=== PATIENT | male | born 2005 | race Caucasian/White ===

== ENCOUNTER 2024-03-14 18:21 | Observation (INO) | payer OTHER ==
--- NOTE | 2024-03-14 18:33 | ERPHSYRPT ---
- History of Present Illness Time Seen by Provider: 03/14/24 18:28 Exam Limitations: no limitations Physician History: Patient is a 18-year-old male presents to our ED for evaluation of shortness of breath and muscle cramping. Patient states he was at work. Patient works outdoors. Patient reports that he has been sweating profusely outside while working. Patient later developed leg cramping and then shortness of breath. Patient denies active pain at this time. No history of asthma. Patient is a smoker. Patient denies fever. No trauma. Patient otherwise feels well. He voices no other complaints or concerns at this time. Portions of this note were created with voice recognition technology. There may be grammatical, spelling, punctuation or sound alike errors Timing/Duration: today Activities at Onset: none Severity of Dyspnea-Max: moderate Severity of Dyspnea-Current: mild Possible Cause: unknown cause Modifying Factors: Improves With: activity Allergies/Adverse Reactions: bee venom protein (honey bee) Allergy (Verified 03/14/24 22:40) Home Medications: No Reportable Medications [No Reported Medications] 03/14/24 [History] - Review of Systems Constitutional: No Symptoms, No Fever, No Chills Eyes: No Symptoms Ears, Nose, & Throat: No Symptoms Respiratory: No Symptoms, No Cough, No Dyspnea Cardiac: No Symptoms, No Chest Pain, No Edema, No Syncope Abdominal/Gastrointestinal: No Symptoms, No Abdominal Pain, No Nausea, No Vomiting, No Diarrhea Genitourinary Symptoms: No Symptoms, No Dysuria Musculoskeletal: No Symptoms, No Back Pain, No Neck Pain Skin: No Symptoms, No Rash Neurological: No Symptoms, No Dizziness, No Focal Weakness, No Sensory Changes Psychological: No Symptoms Endocrine: No Symptoms Hematologic/Lymphatic: No Symptoms Immunological/Allergic: No Symptoms All Other Systems: Reviewed and Negative - Nursing Vital Signs Nursing Vital Signs: Initial Vital Signs Temperature 97.6 F 03/14/24 18:28 Pulse Rate 102 H 03/14/24 18:28 Respiratory Rate 20 03/14/24 18:28 O2 Sat by Pulse Oximetry 100 03/14/24 18:28 Pain Scale Pain Intensity 4 - Physical Exam General Appearance: no apparent distress, alert Eye Exam: PERRL/EOMI Ears, Nose, Throat Exam: hearing grossly normal, normal ENT inspection, normal pharynx Neck Exam: normal inspection, supple, full range of motion Respiratory Exam: normal breath sounds, lungs clear, airway intact, No respiratory distress Cardiovascular/Chest Exam: normal heart sounds, regular rate/rhythm Abdominal/Gastrointestinal Exam: soft, No tenderness, No distention, No mass Extremity Exam: non-tender, normal range of motion, normal inspection, no calf tenderness, no pedal edema Neurologic Exam: alert, oriented x 3, cooperative, strip feeder II-XII nml as tested, sensation nml, No motor deficits Skin Exam: normal color, warm, No dry Lymphatic Exam: No adenopathy SpO2 Interpretation: normal SpO2: 100 O2 Delivery: Room Air - Course Nursing assessment & vital signs reviewed: Yes EKG Interpreted by Me: RATE ([id number]), Sinus Tach, NORMAL AXIS, NORMAL INTERVALS - Radiology Exams Chest X-ray Interpretation: Interpreted by me (No acute findings) Ordered Tests: Active Orders 24 hr Category Date Time Status Bedrest ROUTINE Activity 03/14/24 22:18 Active Call Admit Doctor for Orders ON ADMISSION Care 03/14/24 22:18 Active Refrigerated Cargo Clerk STAT Care 03/14/24 18:32 Completed Code Status Order ROUTINE Care 03/14/24 22:18 Active EKG-ER Only STAT Care 03/14/24 18:31 Completed IV Insertion STAT Care 03/14/24 18:31 Completed Neuro Checks Q4H Care 03/14/24 22:[address] in Observation ROUTINE Care 03/14/24 22:18 Active Pulse Oximetry (ED) STAT Care 03/14/24 18:31 Completed Telemetry q6h Care 03/14/24 22:18 Active Heart-Healthy Diet Diet 03/15/24 Breakfast Active CHEST 1 VIEW (PORTABLE) Stat Exams 03/14/24 19:17 Taken CBC W DIFF Stat Lab 03/14/24 18:30 Completed CK (IN-HOUSE) [CK-Creatinine Phosphokinase] Stat Lab 03/14/24 18:30 Completed CMP Stat Lab 03/14/24 18:30 Completed D-DIMER QUANTITATIVE Stat Lab 03/14/24 18:30 Completed MAGNESIUM Stat Lab 03/14/24 18:30 Completed NT PRO BNPII Stat Lab 03/14/24 18:30 Completed TROPONIN Q4H Lab 03/14/24 18:30 Completed TROPONIN Q4H Lab 03/14/24 22:00 Completed TROPONIN Q4H Lab 03/15/24 02:45 Ordered UA W/RFX UR CULTURE Stat Lab 03/14/24 20:00 Completed Pulse Oximetry CONTINUOUS RT 03/14/24 22:18 Completed Transfer Order Routine Transfer 03/14/24 Completed Medication Summary Generic Name Dose Route Start Last Admin Trade Name Tata PRN Reason Stop Dose Admin Acetaminophen 1,000 mg 03/14/24 23:44 03/14/24 23:48 Acetaminophen 500 Mg Tablet PO 04/13/24 23:43 1,000 mg Q4H PRN PRN Administration HEADACHE Acetaminophen/Codeine Phosphate 1 tab 03/14/24 23:21 Codeine Phosphate/Apap #3 PO 04/13/24 23:20 Q4H PRN PRN PAIN Lactated Ringer's 1,000 mls @ 150 mls/hr 03/14/24 23:30 03/14/24 23:48 Lactated Ringers IV 04/13/24 23:29 150 mls/hr .Q6H40M SHELLY Administration Methocarbamol 500 mg 03/14/24 23:20 Methocarbamol 500 Mg Tablet PO 04/13/24 23:19 QID PRN PRN MUSCLE SPASMS Discontinued Medications Generic Name Dose Route Start Last Admin Trade Name Freomer PRN Reason Stop Dose Admin Acetaminophen 650 mg 03/14/24 23:16 Acetaminophen 650 Mg Supp.Rect OH 04/13/24 23:15 Q4H PRN PRN MILD TO MODERATE PAIN Sodium Chloride 1,000 mls @ 999 mls/hr 03/14/24 19:01 03/14/24 20:06 Sodium Chloride 0.9% 1000 Ml IV 03/14/24 20:01 Infused .Q1H1M STA Infusion Sodium Chloride Confirm 03/14/24 19:03 Sodium Chloride 0.9% 1000 Ml Administered 03/14/24 19:04 Dose 1,000 mls @ ud .ROUTE .STK-MED ONE Lactated Ringer's 1,000 mls @ 999 mls/hr 03/14/24 20:45 03/14/24 20:47 Lactated Ringers IV 03/14/24 21:45 999 mls/hr .Q1H1M ONE Administration Lactated Ringer's Confirm 03/14/24 20:46 Lactated Ringers Administered 03/14/24 20:47 Dose 1,000 mls @ ud IV .STK-MED ONE Lab/Rad Data: Laboratory Result Diagrams 03/14/24 18:30 03/14/24 18:30 Laboratory Results 03/14/24 03/14/24 03/14/24 Range/Units 20:00 18:40 18:30 WBC (4.23-9.07) x10^3/uL RBC (4.63-6.08) x10^6/uL Hgb (13.7-17.5) g/dL Hct (40.1-51.0) % MCV (79.0-92.2) fL MCH (25.7-32.2) pg MCHC (32.3-36.5) g/dL RDW (11.6-14.4) % Plt Count (163-337) x10^3/uL MPV (9.4-12.4) fL Gran % (34.0-67.9) % Immature Gran % (Auto) (0.001-0.429) % Nucleat RBC Rel Count (0.00-0.2) % Eos # (Auto) (0.04-0.54) x10^3/uL Immature Gran # (Auto) (0.001-0.031) x10^3u/L Absolute Lymphs (auto) (1.32-3.57) x10^3/uL Absolute Monos (auto) (0.30-0.82) x10^3/uL Absolute Nucleated RBC (0.00-0.012) x10^3u/L Lymphocytes % (21.8-53.1) % Monocytes % (5.3-12.2) % Eosinophils % (0.8-7.0) % Basophils % (0.2-1.2) % Absolute Granulocytes (1.78-5.38) x10^3/uL Basophils # (0.01-0.08) x10^3/uL D-Dimer (0.0-0.50) mg/L Sodium (135-145) mmol/L Potassium (3.5-5.1) mmol/L Chloride (98-107) mmol/L Carbon Dioxide (22-30) mmol/L Anion Gap (5-15) MEQ/L BUN (9-20) mg/dL Creatinine (0.66-1.25) mg/dL Estimated GFR ML/MIN Glucose (74-106) mg/dL Calcium (8.4-10.2) mg/dL Magnesium (1.6-2.3) mg/dL Total Bilirubin (0.2-1.3) mg/dL AST (17-59) U/L ALT (0-50) U/L Alkaline Phosphatase (38-126) U/L Creatine Kinase 650 H (55-170) U/L Troponin I (0.000-0.033) ng/mL NT-Pro-B Natriuret Pep (<300) pg/mL Serum Total Protein (6.3-8.2) g/dL Albumin (3.5-5.0) g/dL Urine Color Yellow (Yellow) Urine Appearance Cloudy A (Clear) Urine pH 5.0 (4.6-8.0) Ur Specific [place] 1.015 (1.005-1.030) Urine Protein 30 (Negative) Urine Glucose (UA) Negative (Negative) mg/dL Urine Ketones 15 A (Negative) Urine Blood Negative (Negative) Urine Nitrite Negative (Negative) Urine Bilirubin Negative (Negative) Urine Urobilinogen 0.2 (0.2) mg/dL Ur Leukocyte Esterase Negative (Negative) U Hyaline Cast (Auto) 3-5 A (0-2) /LPF Urine Microscopic RBC 0-2 (0-5) /HPF Urine Microscopic WBC 0-2 (0-5) /HPF Ur Epithelial Cells Rare (None Seen) /HPF Urine Bacteria Rare A (None Seen) /HPF Urine Culture Reflexed NO (NO) Influenza Type A Ag NEGATIVE (NEGATIVE) Influenza Type B Ag NEGATIVE (NEGATIVE) RSV (PCR) NEGATIVE (NEGATIVE) SARS-CoV-2 (PCR) NEGATIVE (NEGATIVE) 03/14/24 03/14/24 03/14/24 Range/Units 18:30 18:30 18:30 WBC (4.23-9.07) x10^3/uL RBC (4.63-6.08) x10^6/uL Hgb (13.7-17.5) g/dL Hct (40.1-51.0) % MCV (79.0-92.2) fL MCH (25.7-32.2) pg MCHC (32.3-36.5) g/dL RDW (11.6-14.4) % Plt Count (163-337) x10^3/uL MPV (9.4-12.4) fL Gran % (34.0-67.9) % Immature Gran % (Auto) (0.001-0.429) % Nucleat RBC Rel Count (0.00-0.2) % Eos # (Auto) (0.04-0.54) x10^3/uL Immature Gran # (Auto) (0.001-0.031) x10^3u/L Absolute Lymphs (auto) (1.32-3.57) x10^3/uL Absolute Monos (auto) (0.30-0.82) x10^3/uL Absolute Nucleated RBC (0.00-0.012) x10^3u/L Lymphocytes % (21.8-53.1) % Monocytes % (5.3-12.2) % Eosinophils % (0.8-7.0) % Basophils % (0.2-1.2) % Absolute Granulocytes (1.78-5.38) x10^3/uL Basophils # (0.01-0.08) x10^3/uL D-Dimer < 0.19 (0.0-0.50) mg/L Sodium 136 (135-145) mmol/L Potassium 4.0 (3.5-5.1) mmol/L Chloride 96 L (98-107) mmol/L Carbon Dioxide 19 L (22-30) mmol/L Anion Gap 24.9 H (5-15) MEQ/L BUN 19 (9-20) mg/dL Creatinine 2.65 H (0.66-1.25) mg/dL Estimated GFR 34.3 ML/MIN Glucose 105 (74-106) mg/dL Calcium 11.6 H (8.4-10.2) mg/dL Magnesium 1.6 (1.6-2.3) mg/dL Total Bilirubin 1.70 H (0.2-1.3) mg/dL AST 51 (17-59) U/L ALT 53 H (0-50) U/L Alkaline Phosphatase 119 (38-126) U/L Creatine Kinase (55-170) U/L Troponin I < 0.012 (0.000-0.033) ng/mL NT-Pro-B Natriuret Pep 89.7 (<300) pg/mL Serum Total Protein 8.9 H (6.3-8.2) g/dL Albumin 5.7 H (3.5-5.0) g/dL Urine Color (Yellow) Urine Appearance (Clear) Urine pH (4.6-8.0) Ur Specific [place] (1.005-1.030) Urine Protein (Negative) Urine Glucose (UA) (Negative) mg/dL Urine Ketones (Negative) Urine Blood (Negative) Urine Nitrite (Negative) Urine Bilirubin (Negative) Urine Urobilinogen (0.2) mg/dL Ur Leukocyte Esterase (Negative) U Hyaline Cast (Auto) (0-2) /LPF Urine Microscopic RBC (0-5) /HPF Urine Microscopic WBC (0-5) /HPF Ur Epithelial Cells (None Seen) /HPF Urine Bacteria (None Seen) /HPF Urine Culture Reflexed (NO) Influenza Type A Ag (NEGATIVE) Influenza Type B Ag (NEGATIVE) RSV (PCR) (NEGATIVE) SARS-CoV-2 (PCR) (NEGATIVE) 03/14/24 Range/Units 18:30 WBC 15.5 H (4.23-9.07) x10^3/uL RBC 5.65 (4.63-6.08) x10^6/uL Hgb 17.1 (13.7-17.5) g/dL Hct 47.8 (40.1-51.0) % MCV 84.6 (79.0-92.2) fL MCH 30.3 (25.7-32.2) pg MCHC 35.8 (32.3-36.5) g/dL RDW 12.0 (11.6-14.4) % Plt Count 336 (163-337) x10^3/uL MPV 10.1 (9.4-12.4) fL Gran % 83.7 H (34.0-67.9) % Immature Gran % (Auto) 0.5 H (0.001-0.429) % Nucleat RBC Rel Count 0.0 (0.00-0.2) % Eos # (Auto) 0.02 L (0.04-0.54) x10^3/uL Immature Gran # (Auto) 0.08 H (0.001-0.031) x10^3u/L Absolute Lymphs (auto) 1.38 (1.32-3.57) x10^3/uL Absolute Monos (auto) 1.01 H (0.30-0.82) x10^3/uL Absolute Nucleated RBC 0.00 (0.00-0.012) x10^3u/L Lymphocytes % 8.9 L (21.8-53.1) % Monocytes % 6.5 (5.3-12.2) % Eosinophils % 0.1 L (0.8-7.0) % Basophils % 0.3 (0.2-1.2) % Absolute Granulocytes 12.96 H (1.78-5.38) x10^3/uL Basophils # 0.04 (0.01-0.08) x10^3/uL D-Dimer (0.0-0.50) mg/L Sodium (135-145) mmol/L Potassium (3.5-5.1) mmol/L Chloride (98-107) mmol/L Carbon Dioxide (22-30) mmol/L Anion Gap (5-15) MEQ/L BUN (9-20) mg/dL Creatinine (0.66-1.25) mg/dL Estimated GFR ML/MIN Glucose (74-106) mg/dL Calcium (8.4-10.2) mg/dL Magnesium (1.6-2.3) mg/dL Total Bilirubin (0.2-1.3) mg/dL AST (17-59) U/L ALT (0-50) U/L Alkaline Phosphatase (38-126) U/L Creatine Kinase (55-170) U/L Troponin I (0.000-0.033) ng/mL NT-Pro-B Natriuret Pep (<300) pg/mL Serum Total Protein (6.3-8.2) g/dL Albumin (3.5-5.0) g/dL Urine Color (Yellow) Urine Appearance (Clear) Urine pH (4.6-8.0) Ur Specific [place] (1.005-1.030) Urine Protein (Negative) Urine Glucose (UA) (Negative) mg/dL Urine Ketones (Negative) Urine Blood (Negative) Urine Nitrite (Negative) Urine Bilirubin (Negative) Urine Urobilinogen (0.2) mg/dL Ur Leukocyte Esterase (Negative) U Hyaline Cast (Auto) (0-2) /LPF Urine Microscopic RBC (0-5) /HPF Urine Microscopic WBC (0-5) /HPF Ur Epithelial Cells (None Seen) /HPF Urine Bacteria (None Seen) /HPF Urine Culture Reflexed (NO) Influenza Type A Ag (NEGATIVE) Influenza Type B Ag (NEGATIVE) RSV (PCR) (NEGATIVE) SARS-CoV-2 (PCR) (NEGATIVE) - Progress Progress: improved Air Movement: good Progress Note: Case discussed with hospitalist Dr. Vides who accepts admission to observation at 8:48 PM. Plan of care discussed with patient. He agrees to admission [facility] for further evaluation and treatment. EKG suggestive of acute pericarditis however patient has no chest pain. There is no friction rub. CRP pending. We will hold off on NSAID dose due to patient's kidney function. 18-year-old male presents to emergency for evaluation of shortness of breath and cramping. Patient states he was outdoors sweating and not replenishing his fluid loss. Evaluation essentially nonremarkable. Laboratory workup reveals hemoconcentration. Elevated CBC WBC and platelet count. Creatinine is elevated. Likely secondary to prerenal azotemia. Patient is slightly acidotic as well with a bicarb of 19. In light of his kidney function we will add on a CK. Results pending. Patient received a liter of normal saline. A liter of lactated ringer ordered and currently infusing. Patient will require further evaluation and treatment. Complexity problem addressed is moderate acute complicated. No critical care time. Complex of data reviewed and analyzed is extensive. Test ordered test reviewed results analyzed and correlated clinically with history and physical examination. Case discussed with hospitalist who accepts admission to observation at 8:48 PM. Risk of complication and or risk of morbidity/mortality patient management is high. Patient requires hospitalization for further evaluation and treatment. Vital stable. Time spent to admit patient is approximately 20 minutes. Plan of care established for shared decision making. No social determinants of health present impede follow-up Portions of this note were created with voice recognition technology. There may be grammatical, spelling, punctuation or sound alike errors 03/14/24 20:51 Blood Culture(s) Obtained: No Counseled pt/family regarding: lab results, diagnosis - Departure Departure Disposition: Observation Clinical Impression: Dehydration, Acute renal injury, Elevated serum creatinine, Pericarditis, Metabolic acidosis, Muscle cramping Condition: Stable Critical Care Time: No
[2024-03-14 18:44] LABS: Absolute Neutrophil Ct (ANC) 12.96 x10^3/uL (1.78-5.38); BASOPHIL % 0.3 % (0.2-1.2); Basophil (Absolute #) 0.04 x10^3/uL (0.01-0.08); Eosinophil % 0.1 % (0.8-7.0); Eosinophil (Absolute #) 0.02 x10^3/uL (0.04-0.54); Hematocrit 47.8 % (40.1-51.0); Hemoglobin 17.1 g/dL (13.7-17.5); IMMATURE GRAN # 0.08 x10^3u/L (0.001-0.031); IMMATURE GRAN % 0.5 % (0.001-0.429); Lymphocyte (Absolute #) 1.38 x10^3/uL (1.32-3.57); Lymphocytes % 8.9 % (21.8-53.1); Mean Cell Volume 84.6 fL (79.0-92.2); Mean Corpuscular Hemoglobin 30.3 pg (25.7-32.2); Mean Corpuscular Hgb Concent. 35.8 g/dL (32.3-36.5); Mean Platelet Volume 10.1 fL (9.4-12.4); Monocyte (Absolute #) 1.01 x10^3/uL (0.30-0.82); Monocytes % 6.5 % (5.3-12.2); Neutrophil % 83.7 % (34.0-67.9); Platelet Count 336 x10^3/uL (163-337); Red Blood Count 5.65 x10^6/uL (4.63-6.08); White Blood Count 15.5 x10^3/uL (4.23-9.07)
[2024-03-14] MEDS ORDERED: Sodium Chloride 0.9% 1000 ML 1,000 ML ONE (19:03)
[2024-03-14] MEDS: Sodium Chloride 0.9% 1000 ML 1,000 ML IV STA (19:04)
[2024-03-14 19:21] LABS: ALBUMIN 5.7 g/dL (3.5-5.0); ANION GAP 24.9 MEQ/L (5-15); BILIRUBIN,TOTAL 1.7 mg/dL (0.2-1.3); Calcium 11.6 mg/dL (8.4-10.2); Creatinine 1 2.65 mg/dL (0.66-1.25); EST GLOMERULAR FILTRATION RATE 34.3 ML/MIN; MAGNESIUM 1.6 mg/dL (1.6-2.3); NT PRO BNPII 89.7 pg/mL (<300); Total Protein 8.9 g/dL (6.3-8.2)
[2024-03-14 19:23] LABS: INFLUENZA A NEGATIVE (NEGATIVE); INFLUENZA B NEGATIVE (NEGATIVE); RESPIRATORY SYNCTIAL VIRUS NEGATIVE (NEGATIVE); SARS-CoV-2 Xpert Express NEGATIVE (NEGATIVE)
[2024-03-14] MEDS ORDERED: Lactated Ringers 1,000 ML IV ONE (20:46)
[2024-03-14] MEDS: Lactated Ringers 1,000 ML IV ONE (20:47)
[2024-03-14 20:48] LABS: Appearance Cloudy (Clear); Bacteria Rare /HPF (None Seen); Bilirubin Negative (Negative); Blood Negative (Negative); Epithelial Cells Rare /HPF (None Seen); Glucose, Urine Negative (Negative); Ketones 15 (Negative); Leukocyte Esterase Negative (Negative); Nitrite Negative (Negative); Protein,Urine Dip 30 (Negative); RBC 0-2 /HPF (0-5); Specific Gravity 1.015 (1.005-1.030); Urobilinogen 0.2 mg/dL (0.2); WBC 0-2 /HPF (0-5)
[2024-03-14 20:49] LABS: ADD URINE CULTURE? NO (NO)
[2024-03-14 22:39] LABS: Amphetamine,Urine NEGATIVE (NEGATIVE); Barbiturate,Urine NEGATIVE (NEGATIVE); Benzodiazepine,Urine NEGATIVE (NEGATIVE); Cocaine,Urine NEGATIVE (NEGATIVE); Methadone,Urine NEGATIVE (NEGATIVE); Opiate,Urine NEGATIVE (NEGATIVE); PCP,Urine NEGATIVE (NEGATIVE); THC,Urine NEGATIVE (NEGATIVE)
--- NOTE | 2024-03-14 22:51 | PCM.HP ---
History of Present Illness - Chief Complaint Chief Complaint: Dehydration, acute renal injury, Date: 03/14/24 History of Present Illness: 23 years old pleasant male with no significant past medical history came to the ER complaining of cramps after working outside in heat. He did complain of some sweating and shortness of breath as well. No other GI urinary symptoms reported. In the ER his vital signs were stable. As far as lab workup was concerned it was significant for high white cell count BUN 18 creatinine 2.65 anion gap urine was negative for infection chest x-ray was clear CK was 675. Patient was admitted for volume depletion/mild rhabdo. - Review of Systems All Other Systems: Reviewed and Negative (14 systems reviewed and marked ve except mentioned in [place]) Medications & Allergies Home Medications: Home Medication List No Reportable Medications [No Reported Medications] 03/14/24 [History Confirmed 03/14/24] Allergies/Adverse Reactions: Allergies Allergy/AdvReac Type Severity Reaction Status Date / Time bee venom protein (honey bee) Allergy Verified 03/14/24 22:40 - Past Medical History Past Medical History: No Neurological History: No Pertinent History ENT History: No Pertinent History Cardiac History: No Pertinent History Respiratory History: No Pertinent History Endocrine Medical History: No Pertinent History Musculoskelatal History: No Pertinent History GI Medical History: No Pertinent History History: No Pertinent History Pyscho-Social History: No Pertinent History Male Reproductive Disorders: No Pertinent History - Past Surgical History Past Surgical History: Yes Neuro Surgical History: No Pertinent History Cardiac History: No Pertinent History Respiratory Surgery: No Pertinent History GI Surgical History: No Pertinent History Genitourinary Surgical Hx: No Pertinent History Musculskeletal Surgical Hx: No Pertinent History Male Surgical History: No Pertinent History Significant Family History: no pertinent family hx (No family history pertaining to this admission reported) - Social History Smoking Status: Never smoker Exposure to second hand smoke: No Alcohol: None Drug Use: none - Social Determinants of Health Will the patient participate in the screening: Yes Do you worry about a steady place to live?: No Do you have any problems with any of the following?: No known problems In the past 12 months,have you had to go without utilities?: No Have you or anyone in your house had to go without enough: No Transportation Issues: No Has anyone in your support network made you feel unsafe?: No - Physical Exam Vital Signs: Vital Signs - 24 hr Temp Pulse Resp BP Pulse Ox 03/14/24 21:00 97 H 17 95/68 98 03/14/24 20:58 100 03/14/24 20:30 94 H 19 123/81 97 03/14/24 20:00 97 H 20 120/76 99 03/14/24 19:30 100 H 17 113/70 98 03/14/24 19:00 101 H 15 115/80 99 03/14/24 18:45 99 03/14/24 18:28 97.6 F 102 H 20 100 Additional Findings: 03/14/24 22:50 HEENT Young aged, average built in no distress NECK Supple,no thyromegaly, CVS S1+S2 + 0, no murmers RESP Bilateral equal air entry without Crepts/Wheezes heard GIT Soft non tender,non distended Skin, No rah, no Bruises LEGS No Edema PSYCH Normal,mood, judgement and insight NEURO AOX3, no focal deficit Results - Labs Lab/Micro Results: Lab Results-Last 24 Hours 03/14/24 03/14/24 03/14/24 Range/Units 18:30 18:30 18:30 WBC 15.5 H (4.23-9.07) x10^3/uL RBC 5.65 (4.63-6.08) x10^6/uL Hgb 17.1 (13.7-17.5) g/dL Hct 47.8 (40.1-51.0) % MCV 84.6 (79.0-92.2) fL MCH 30.3 (25.7-32.2) pg MCHC 35.8 (32.3-36.5) g/dL RDW 12.0 (11.6-14.4) % Plt Count 336 (163-337) x10^3/uL MPV 10.1 (9.4-12.4) fL Gran % 83.7 H (34.0-67.9) % Immature Gran % (Auto) 0.5 H (0.001-0.429) % Nucleat RBC Rel Count 0.0 (0.00-0.2) % Eos # (Auto) 0.02 L (0.04-0.54) x10^3/uL Immature Gran # (Auto) 0.08 H (0.001-0.031) x10^3u/L Absolute Lymphs (auto) 1.38 (1.32-3.57) x10^3/uL Absolute Monos (auto) 1.01 H (0.30-0.82) x10^3/uL Absolute Nucleated RBC 0.00 (0.00-0.012) x10^3u/L Lymphocytes % 8.9 L (21.8-53.1) % Monocytes % 6.5 (5.3-12.2) % Eosinophils % 0.1 L (0.8-7.0) % Basophils % 0.3 (0.2-1.2) % Absolute Granulocytes 12.96 H (1.78-5.38) x10^3/uL Basophils # 0.04 (0.01-0.08) x10^3/uL D-Dimer < 0.19 (0.0-0.50) mg/L Sodium 136 (135-145) mmol/L Potassium 4.0 (3.5-5.1) mmol/L Chloride 96 L (98-107) mmol/L Carbon Dioxide 19 L (22-30) mmol/L Anion Gap 24.9 H (5-15) MEQ/L BUN 19 (9-20) mg/dL Creatinine 2.65 H (0.66-1.25) mg/dL Estimated GFR 34.3 ML/MIN Glucose 105 (74-106) mg/dL Calcium 11.6 H (8.4-10.2) mg/dL Magnesium 1.6 (1.6-2.3) mg/dL Total Bilirubin 1.70 H (0.2-1.3) mg/dL AST 51 (17-59) U/L ALT 53 H (0-50) U/L Alkaline Phosphatase 119 (38-126) U/L Creatine Kinase (55-170) U/L Troponin I (0.000-0.033) ng/mL NT-Pro-B Natriuret Pep 89.7 (<300) pg/mL Serum Total Protein 8.9 H (6.3-8.2) g/dL Albumin 5.7 H (3.5-5.0) g/dL Urine Color (Yellow) Urine Appearance (Clear) Urine pH (4.6-8.0) Ur Specific [place] (1.005-1.030) Urine Protein (Negative) Urine Glucose (UA) (Negative) mg/dL Urine Ketones (Negative) Urine Blood (Negative) Urine Nitrite (Negative) Urine Bilirubin (Negative) Urine Urobilinogen (0.2) mg/dL Ur Leukocyte Esterase (Negative) U Hyaline Cast (Auto) (0-2) /LPF Urine Microscopic RBC (0-5) /HPF Urine Microscopic WBC (0-5) /HPF Ur Epithelial Cells (None Seen) /HPF Urine Bacteria (None Seen) /HPF Urine Culture Reflexed (NO) Urine Opiates Level (NEGATIVE) Ur Methadone (NEGATIVE) Urine Barbiturates (NEGATIVE) Ur Phencyclidine (PCP) (NEGATIVE) Urine Amphetamine (NEGATIVE) U Benzodiazepine Level (NEGATIVE) Urine Cocaine (NEGATIVE) Urine Marijuana (THC) (NEGATIVE) Influenza Type A Ag (NEGATIVE) Influenza Type B Ag (NEGATIVE) RSV (PCR) (NEGATIVE) SARS-CoV-2 (PCR) (NEGATIVE) 03/14/24 03/14/24 03/14/24 Range/Units 18:30 18:30 18:40 WBC (4.23-9.07) x10^3/uL RBC (4.63-6.08) x10^6/uL Hgb (13.7-17.5) g/dL Hct (40.1-51.0) % MCV (79.0-92.2) fL MCH (25.7-32.2) pg MCHC (32.3-36.5) g/dL RDW (11.6-14.4) % Plt Count (163-337) x10^3/uL MPV (9.4-12.4) fL Gran % (34.0-67.9) % Immature Gran % (Auto) (0.001-0.429) % Nucleat RBC Rel Count (0.00-0.2) % Eos # (Auto) (0.04-0.54) x10^3/uL Immature Gran # (Auto) (0.001-0.031) x10^3u/L Absolute Lymphs (auto) (1.32-3.57) x10^3/uL Absolute Monos (auto) (0.30-0.82) x10^3/uL Absolute Nucleated RBC (0.00-0.012) x10^3u/L Lymphocytes % (21.8-53.1) % Monocytes % (5.3-12.2) % Eosinophils % (0.8-7.0) % Basophils % (0.2-1.2) % Absolute Granulocytes (1.78-5.38) x10^3/uL Basophils # (0.01-0.08) x10^3/uL D-Dimer (0.0-0.50) mg/L Sodium (135-145) mmol/L Potassium (3.5-5.1) mmol/L Chloride (98-107) mmol/L Carbon Dioxide (22-30) mmol/L Anion Gap (5-15) MEQ/L BUN (9-20) mg/dL Creatinine (0.66-1.25) mg/dL Estimated GFR ML/MIN Glucose (74-106) mg/dL Calcium (8.4-10.2) mg/dL Magnesium (1.6-2.3) mg/dL Total Bilirubin (0.2-1.3) mg/dL AST (17-59) U/L ALT (0-50) U/L Alkaline Phosphatase (38-126) U/L Creatine Kinase 650 H (55-170) U/L Troponin I < 0.012 (0.000-0.033) ng/mL NT-Pro-B Natriuret Pep (<300) pg/mL Serum Total Protein (6.3-8.2) g/dL Albumin (3.5-5.0) g/dL Urine Color (Yellow) Urine Appearance (Clear) Urine pH (4.6-8.0) Ur Specific [place] (1.005-1.030) Urine Protein (Negative) Urine Glucose (UA) (Negative) mg/dL Urine Ketones (Negative) Urine Blood (Negative) Urine Nitrite (Negative) Urine Bilirubin (Negative) Urine Urobilinogen (0.2) mg/dL Ur Leukocyte Esterase (Negative) U Hyaline Cast (Auto) (0-2) /LPF Urine Microscopic RBC (0-5) /HPF Urine Microscopic WBC (0-5) /HPF Ur Epithelial Cells (None Seen) /HPF Urine Bacteria (None Seen) /HPF Urine Culture Reflexed (NO) Urine Opiates Level (NEGATIVE) Ur Methadone (NEGATIVE) Urine Barbiturates (NEGATIVE) Ur Phencyclidine (PCP) (NEGATIVE) Urine Amphetamine (NEGATIVE) U Benzodiazepine Level (NEGATIVE) Urine Cocaine (NEGATIVE) Urine Marijuana (THC) (NEGATIVE) Influenza Type A Ag NEGATIVE (NEGATIVE) Influenza Type B Ag NEGATIVE (NEGATIVE) RSV (PCR) NEGATIVE (NEGATIVE) SARS-CoV-2 (PCR) NEGATIVE (NEGATIVE) 03/14/24 03/14/24 03/14/24 Range/Units 20:00 22:00 22:10 WBC (4.23-9.07) x10^3/uL RBC (4.63-6.08) x10^6/uL Hgb (13.7-17.5) g/dL Hct (40.1-51.0) % MCV (79.0-92.2) fL MCH (25.7-32.2) pg MCHC (32.3-36.5) g/dL RDW (11.6-14.4) % Plt Count (163-337) x10^3/uL MPV (9.4-12.4) fL Gran % (34.0-67.9) % Immature Gran % (Auto) (0.001-0.429) % Nucleat RBC Rel Count (0.00-0.2) % Eos # (Auto) (0.04-0.54) x10^3/uL Immature Gran # (Auto) (0.001-0.031) x10^3u/L Absolute Lymphs (auto) (1.32-3.57) x10^3/uL Absolute Monos (auto) (0.30-0.82) x10^3/uL Absolute Nucleated RBC (0.00-0.012) x10^3u/L Lymphocytes % (21.8-53.1) % Monocytes % (5.3-12.2) % Eosinophils % (0.8-7.0) % Basophils % (0.2-1.2) % Absolute Granulocytes (1.78-5.38) x10^3/uL Basophils # (0.01-0.08) x10^3/uL D-Dimer (0.0-0.50) mg/L Sodium (135-145) mmol/L Potassium (3.5-5.1) mmol/L Chloride (98-107) mmol/L Carbon Dioxide (22-30) mmol/L Anion Gap (5-15) MEQ/L BUN (9-20) mg/dL Creatinine (0.66-1.25) mg/dL Estimated GFR ML/MIN Glucose (74-106) mg/dL Calcium (8.4-10.2) mg/dL Magnesium (1.6-2.3) mg/dL Total Bilirubin (0.2-1.3) mg/dL AST (17-59) U/L ALT (0-50) U/L Alkaline Phosphatase (38-126) U/L Creatine Kinase (55-170) U/L Troponin I < 0.012 (0.000-0.033) ng/mL NT-Pro-B Natriuret Pep (<300) pg/mL Serum Total Protein (6.3-8.2) g/dL Albumin (3.5-5.0) g/dL Urine Color Yellow (Yellow) Urine Appearance Cloudy A (Clear) Urine pH 5.0 (4.6-8.0) Ur Specific [place] 1.015 (1.005-1.030) Urine Protein 30 (Negative) Urine Glucose (UA) Negative (Negative) mg/dL Urine Ketones 15 A (Negative) Urine Blood Negative (Negative) Urine Nitrite Negative (Negative) Urine Bilirubin Negative (Negative) Urine Urobilinogen 0.2 (0.2) mg/dL Ur Leukocyte Esterase Negative (Negative) U Hyaline Cast (Auto) 3-5 A (0-2) /LPF Urine Microscopic RBC 0-2 (0-5) /HPF Urine Microscopic WBC 0-2 (0-5) /HPF Ur Epithelial Cells Rare (None Seen) /HPF Urine Bacteria Rare A (None Seen) /HPF Urine Culture Reflexed NO (NO) Urine Opiates Level NEGATIVE (NEGATIVE) Ur Methadone NEGATIVE (NEGATIVE) Urine Barbiturates NEGATIVE (NEGATIVE) Ur Phencyclidine (PCP) NEGATIVE (NEGATIVE) Urine Amphetamine NEGATIVE (NEGATIVE) U Benzodiazepine Level NEGATIVE (NEGATIVE) Urine Cocaine NEGATIVE (NEGATIVE) Urine Marijuana (THC) NEGATIVE (NEGATIVE) Influenza Type A Ag (NEGATIVE) Influenza Type B Ag (NEGATIVE) RSV (PCR) (NEGATIVE) SARS-CoV-2 (PCR) (NEGATIVE) - Radiology Impressions Radiology Exams & Impressions: Radiology Procedures Category Date Time Status CHEST 1 VIEW (PORTABLE) Stat Exams 03/14/24 19:17 Taken Assessment/Plan (1) Acute renal injury Current Visit: Yes Status: Acute Code(s): N17.9 - ACUTE KIDNEY FAILURE, UNSPECIFIED (2) Metabolic acidosis Current Visit: Yes Status: Acute Code(s): E87.20 - ACIDOSIS, UNSPECIFIED (3) Muscle cramping Current Visit: Yes Status: Acute Code(s): R25.2 - CRAMP AND SPASM (4) Dehydration Current Visit: Yes Status: Acute Code(s): E86.0 - DEHYDRATION Telemedicine Encounter - Telemedicine Encounter Telemedicine Encounter: "The entirety of this encounter was performed via Telemedicine" This visit was performed using real-time audio and video connection between my location and thepatients locationwith the assistance of a surrogateat the patients location. Written or verbal consent was obtained from the patient/guardian to perform this visit using[employer] technology. Any patient questions regarding the telemedicine interaction were answered. Rhabdomyolysis. Mild CK around 675 Continue hydration keep checking electrolytes closely Acute kidney injury Seems prerenal due to volume depletion Creatinine 2.65 Continue hydration Avoiding nephrotoxins Leukocytosis Seems reactive to rhabdo Less likely infectious etiology Urine is clear and so does chest x-ray We will keep watching fever curve and WBC Cramps Due to underlying rhabdo Continue hydration If needed can try muscle accident Elevated LFTS Due to Rhabdo C/w hydration Keep avoiding hepatotoxins DVT prophylaxis SCD only CODE STATUS full Discharge planning pending clinical stability. I have reviewed patient lab vitals and imaging detail question and concerns were addressed
[2024-03-14] MEDS ORDERED: FEVERALL 650 MG PR PRN (23:16)
[2024-03-14] MEDS ORDERED: Robaxin PO PRN (23:20)
[2024-03-14] MEDS ORDERED: Tylenol #3 Tablet PO PRN (23:21)
[2024-03-14] MEDS: Lactated Ringers 1,000 ML IV SCH (23:48)
[2024-03-14] MEDS: TYLENOL EXTRA STRENGTH 500 MG PO PRN (23:48)
[2024-03-15 03:17] LABS: Hematocrit 39.7 % (40.1-51.0); Hemoglobin 13.9 g/dL (13.7-17.5); Mean Cell Volume 87.8 fL (79.0-92.2); Mean Corpuscular Hemoglobin 30.8 pg (25.7-32.2); Platelet Count 257 x10^3/uL (163-337); Red Blood Count 4.52 x10^6/uL (4.63-6.08); Red Cell Distribution Width 12.3 % (11.6-14.4); White Blood Count 7.7 x10^3/uL (4.23-9.07)
[2024-03-15 03:36] LABS: ALBUMIN 4.2 g/dL (3.5-5.0); ANION GAP 11.8 MEQ/L (5-15); BILIRUBIN,TOTAL 0.9 mg/dL (0.2-1.3); Calcium 9.4 mg/dL (8.4-10.2); Creatinine 1 1.3 mg/dL (0.66-1.25); EST GLOMERULAR FILTRATION RATE 80.7 ML/MIN; Potassium 3.6 mmol/L (3.5-5.1); Total Protein 6.4 g/dL (6.3-8.2)
--- NOTE | 2024-03-15 08:34 | XRAY ---
Indication: Short of breath. Comparison: None Portable chest demonstrates normal heart, lungs, and bony thorax.
--- NOTE | 2024-03-15 11:51 | PCM.NOTE ---
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 He did complain of some sweating and shortness of breath as well. No other GI urinary symptoms reported. No hematuria. In the ER his vital signs were stable. As far as lab workup was concerned it was significant for high white cell count BUN 18 creatinine 2.65 anion gap urine was negative for infection chest x-ray was clear CK was 675. Patient was admitted for volume depletion/mild rhabdo. Ck 1031 today, and he is c/o muscle pain. Will continue IVF, pain meds, and muscle relaxers and keep another night. Likely will d/c tomorrow if sxs and labs improved. Discussed the importance of staying hydrated when working out in the heat. He denies any further concerns at this time. - Review of Systems Constitutional: No Fever, No Chills Eyes: No Symptoms Ears, Nose, & Throat: No Symptoms Respiratory: No Cough, No Short Of Breath Cardiac: No Chest Pain, No Edema, No Syncope Abdominal/Gastrointestinal: No Abdominal Pain, No Nausea, No Vomiting, No Diarrhea Genitourinary Symptoms: No Dysuria Musculoskeletal: Myalgias, No Back Pain, No Neck Pain Skin: No Rash Neurological: No Dizziness, No Focal Weakness, No Sensory Changes Psychological: No Symptoms Endocrine: No Symptoms Hematologic/Lymphatic: No Symptoms Immunological/Allergic: No Symptoms Objective Exam General Appearance: no apparent distress, alert Neurologic Exam: alert, oriented x 3, cooperative, normal mood/affect, nml cerebellar function, sensation nml, No motor deficits Skin Exam: normal color, warm, dry Eye Exam: PERRL, EOMI, eyes nml inspection Ears, Nose, Throat Exam: normal ENT inspection, pharynx normal, moist mucous membranes Neck Exam: normal inspection, non-tender, supple, full range of motion Respiratory Exam: normal breath sounds, lungs clear, No respiratory distress Cardiovascular Exam: regular rate/rhythm, normal heart sounds Gastrointestinal/Abdomen Exam: soft, No tenderness, No mass Extremity Exam: normal inspection, normal range of motion Back Exam: normal inspection, normal range of motion, No CVA tenderness, No vertebral tenderness Male Genitalia Exam: deferred Rectal Exam: deferred Objective Data Vital Signs: Vital Signs - 24 hr Temp Pulse Resp BP BP Pulse Ox 03/15/24 07:57 96.7 F 82 15 108/67 97 03/15/24 04:00 97.0 F 80 16 94/43 97 03/15/24 00:23 100 03/14/24 22:40 97.9 F 100 H 20 106/56 96 03/14/24 21:00 97 H 17 95/68 98 03/14/24 20:30 94 H 19 123/81 97 03/14/24 20:00 97 H 20 120/76 99 03/14/24 19:30 100 H 17 113/70 98 03/14/24 19:00 101 H 15 115/80 99 03/14/24 18:45 99 03/14/24 18:28 97.6 F 102 H 20 100 Pain Assessment - Last Documented Pain Intensity 3 Pain Scale Used 0-10 Pain Scale Intake and Output: Intake & Output 03/12/24 03/13/24 03/14/24 03/15/24 11:59 11:59 11:59 11:59 Intake Total 1367 Balance 1367 Weight 101.4 kg Lab Results: Lab Results-Last 24 Hours 03/14/24 03/14/24 03/14/24 Range/Units 18:30 18:30 18:30 WBC 15.5 H (4.23-9.07) x10^3/uL RBC 5.65 (4.63-6.08) x10^6/uL Hgb 17.1 (13.7-17.5) g/dL Hct 47.8 (40.1-51.0) % MCV 84.6 (79.0-92.2) fL MCH 30.3 (25.7-32.2) pg MCHC 35.8 (32.3-36.5) g/dL RDW 12.0 (11.6-14.4) % Plt Count 336 (163-337) x10^3/uL MPV 10.1 (9.4-12.4) fL Gran % 83.7 H (34.0-67.9) % Immature Gran % (Auto) 0.5 H (0.001-0.429) % Nucleat RBC Rel Count 0.0 (0.00-0.2) % Eos # (Auto) 0.02 L (0.04-0.54) x10^3/uL Immature Gran # (Auto) 0.08 H (0.001-0.031) x10^3u/L Absolute Lymphs (auto) 1.38 (1.32-3.57) x10^3/uL Absolute Monos (auto) 1.01 H (0.30-0.82) x10^3/uL Absolute Nucleated RBC 0.00 (0.00-0.012) x10^3u/L Lymphocytes % 8.9 L (21.8-53.1) % Monocytes % 6.5 (5.3-12.2) % Eosinophils % 0.1 L (0.8-7.0) % Basophils % 0.3 (0.2-1.2) % Absolute Granulocytes 12.96 H (1.78-5.38) x10^3/uL Basophils # 0.04 (0.01-0.08) x10^3/uL D-Dimer < 0.19 (0.0-0.50) mg/L Sodium 136 (135-145) mmol/L Potassium 4.0 (3.5-5.1) mmol/L Chloride 96 L (98-107) mmol/L Carbon Dioxide 19 L (22-30) mmol/L Anion Gap 24.9 H (5-15) MEQ/L BUN 19 (9-20) mg/dL Creatinine 2.65 H (0.66-1.25) mg/dL Estimated GFR 34.3 ML/MIN Glucose 105 (74-106) mg/dL Calcium 11.6 H (8.4-10.2) mg/dL Magnesium 1.6 (1.6-2.3) mg/dL Total Bilirubin 1.70 H (0.2-1.3) mg/dL AST 51 (17-59) U/L ALT 53 H (0-50) U/L Alkaline Phosphatase 119 (38-126) U/L Creatine Kinase (55-170) U/L Troponin I (0.000-0.033) ng/mL NT-Pro-B Natriuret Pep 89.7 (<300) pg/mL Serum Total Protein 8.9 H (6.3-8.2) g/dL Albumin 5.7 H (3.5-5.0) g/dL Urine Color (Yellow) Urine Appearance (Clear) Urine pH (4.6-8.0) Ur Specific [place] (1.005-1.030) Urine Protein (Negative) Urine Glucose (UA) (Negative) mg/dL Urine Ketones (Negative) Urine Blood (Negative) Urine Nitrite (Negative) Urine Bilirubin (Negative) Urine Urobilinogen (0.2) mg/dL Ur Leukocyte Esterase (Negative) U Hyaline Cast (Auto) (0-2) /LPF Urine Microscopic RBC (0-5) /HPF Urine Microscopic WBC (0-5) /HPF Ur Epithelial Cells (None Seen) /HPF Urine Bacteria (None Seen) /HPF Urine Culture Reflexed (NO) Urine Opiates Level (NEGATIVE) Ur Methadone (NEGATIVE) Urine Barbiturates (NEGATIVE) Ur Phencyclidine (PCP) (NEGATIVE) Urine Amphetamine (NEGATIVE) U Benzodiazepine Level (NEGATIVE) Urine Cocaine (NEGATIVE) Urine Marijuana (THC) (NEGATIVE) Influenza Type A Ag (NEGATIVE) Influenza Type B Ag (NEGATIVE) RSV (PCR) (NEGATIVE) SARS-CoV-2 (PCR) (NEGATIVE) 03/14/24 03/14/24 03/14/24 Range/Units 18:30 18:30 18:40 WBC (4.23-9.07) x10^3/uL RBC (4.63-6.08) x10^6/uL Hgb (13.7-17.5) g/dL Hct (40.1-51.0) % MCV (79.0-92.2) fL MCH (25.7-32.2) pg MCHC (32.3-36.5) g/dL RDW (11.6-14.4) % Plt Count (163-337) x10^3/uL MPV (9.4-12.4) fL Gran % (34.0-67.9) % Immature Gran % (Auto) (0.001-0.429) % Nucleat RBC Rel Count (0.00-0.2) % Eos # (Auto) (0.04-0.54) x10^3/uL Immature Gran # (Auto) (0.001-0.031) x10^3u/L Absolute Lymphs (auto) (1.32-3.57) x10^3/uL Absolute Monos (auto) (0.30-0.82) x10^3/uL Absolute Nucleated RBC (0.00-0.012) x10^3u/L Lymphocytes % (21.8-53.1) % Monocytes % (5.3-12.2) % Eosinophils % (0.8-7.0) % Basophils % (0.2-1.2) % Absolute Granulocytes (1.78-5.38) x10^3/uL Basophils # (0.01-0.08) x10^3/uL D-Dimer (0.0-0.50) mg/L Sodium (135-145) mmol/L Potassium (3.5-5.1) mmol/L Chloride (98-107) mmol/L Carbon Dioxide (22-30) mmol/L Anion Gap (5-15) MEQ/L BUN (9-20) mg/dL Creatinine (0.66-1.25) mg/dL Estimated GFR ML/MIN Glucose (74-106) mg/dL Calcium (8.4-10.2) mg/dL Magnesium (1.6-2.3) mg/dL Total Bilirubin (0.2-1.3) mg/dL AST (17-59) U/L ALT (0-50) U/L Alkaline Phosphatase (38-126) U/L Creatine Kinase 650 H (55-170) U/L Troponin I < 0.012 (0.000-0.033) ng/mL NT-Pro-B Natriuret Pep (<300) pg/mL Serum Total Protein (6.3-8.2) g/dL Albumin (3.5-5.0) g/dL Urine Color (Yellow) Urine Appearance (Clear) Urine pH (4.6-8.0) Ur Specific [place] (1.005-1.030) Urine Protein (Negative) Urine Glucose (UA) (Negative) mg/dL Urine Ketones (Negative) Urine Blood (Negative) Urine Nitrite (Negative) Urine Bilirubin (Negative) Urine Urobilinogen (0.2) mg/dL Ur Leukocyte Esterase (Negative) U Hyaline Cast (Auto) (0-2) /LPF Urine Microscopic RBC (0-5) /HPF Urine Microscopic WBC (0-5) /HPF Ur Epithelial Cells (None Seen) /HPF Urine Bacteria (None Seen) /HPF Urine Culture Reflexed (NO) Urine Opiates Level (NEGATIVE) Ur Methadone (NEGATIVE) Urine Barbiturates (NEGATIVE) Ur Phencyclidine (PCP) (NEGATIVE) Urine Amphetamine (NEGATIVE) U Benzodiazepine Level (NEGATIVE) Urine Cocaine (NEGATIVE) Urine Marijuana (THC) (NEGATIVE) Influenza Type A Ag NEGATIVE (NEGATIVE) Influenza Type B Ag NEGATIVE (NEGATIVE) RSV (PCR) NEGATIVE (NEGATIVE) SARS-CoV-2 (PCR) NEGATIVE (NEGATIVE) 03/14/24 03/14/24 03/14/24 Range/Units 20:00 22:00 22:10 WBC (4.23-9.07) x10^3/uL RBC (4.63-6.08) x10^6/uL Hgb (13.7-17.5) g/dL Hct (40.1-51.0) % MCV (79.0-92.2) fL MCH (25.7-32.2) pg MCHC (32.3-36.5) g/dL RDW (11.6-14.4) % Plt Count (163-337) x10^3/uL MPV (9.4-12.4) fL Gran % (34.0-67.9) % Immature Gran % (Auto) (0.001-0.429) % Nucleat RBC Rel Count (0.00-0.2) % Eos # (Auto) (0.04-0.54) x10^3/uL Immature Gran # (Auto) (0.001-0.031) x10^3u/L Absolute Lymphs (auto) (1.32-3.57) x10^3/uL Absolute Monos (auto) (0.30-0.82) x10^3/uL Absolute Nucleated RBC (0.00-0.012) x10^3u/L Lymphocytes % (21.8-53.1) % Monocytes % (5.3-12.2) % Eosinophils % (0.8-7.0) % Basophils % (0.2-1.2) % Absolute Granulocytes (1.78-5.38) x10^3/uL Basophils # (0.01-0.08) x10^3/uL D-Dimer (0.0-0.50) mg/L Sodium (135-145) mmol/L Potassium (3.5-5.1) mmol/L Chloride (98-107) mmol/L Carbon Dioxide (22-30) mmol/L Anion Gap (5-15) MEQ/L BUN (9-20) mg/dL Creatinine (0.66-1.25) mg/dL Estimated GFR ML/MIN Glucose (74-106) mg/dL Calcium (8.4-10.2) mg/dL Magnesium (1.6-2.3) mg/dL Total Bilirubin (0.2-1.3) mg/dL AST (17-59) U/L ALT (0-50) U/L Alkaline Phosphatase (38-126) U/L Creatine Kinase (55-170) U/L Troponin I < 0.012 (0.000-0.033) ng/mL NT-Pro-B Natriuret Pep (<300) pg/mL Serum Total Protein (6.3-8.2) g/dL Albumin (3.5-5.0) g/dL Urine Color Yellow (Yellow) Urine Appearance Cloudy A (Clear) Urine pH 5.0 (4.6-8.0) Ur Specific [place] 1.015 (1.005-1.030) Urine Protein 30 (Negative) Urine Glucose (UA) Negative (Negative) mg/dL Urine Ketones 15 A (Negative) Urine Blood Negative (Negative) Urine Nitrite Negative (Negative) Urine Bilirubin Negative (Negative) Urine Urobilinogen 0.2 (0.2) mg/dL Ur Leukocyte Esterase Negative (Negative) U Hyaline Cast (Auto) 3-5 A (0-2) /LPF Urine Microscopic RBC 0-2 (0-5) /HPF Urine Microscopic WBC 0-2 (0-5) /HPF Ur Epithelial Cells Rare (None Seen) /HPF Urine Bacteria Rare A (None Seen) /HPF Urine Culture Reflexed NO (NO) Urine Opiates Level NEGATIVE (NEGATIVE) Ur Methadone NEGATIVE (NEGATIVE) Urine Barbiturates NEGATIVE (NEGATIVE) Ur Phencyclidine (PCP) NEGATIVE (NEGATIVE) Urine Amphetamine NEGATIVE (NEGATIVE) U Benzodiazepine Level NEGATIVE (NEGATIVE) Urine Cocaine NEGATIVE (NEGATIVE) Urine Marijuana (THC) NEGATIVE (NEGATIVE) Influenza Type A Ag (NEGATIVE) Influenza Type B Ag (NEGATIVE) RSV (PCR) (NEGATIVE) SARS-CoV-2 (PCR) (NEGATIVE) 03/15/24 03/15/24 03/15/24 Range/Units 03:13 03:13 03:13 WBC 7.7 (4.23-9.07) x10^3/uL RBC 4.52 L (4.63-6.08) x10^6/uL Hgb 13.9 (13.7-17.5) g/dL Hct 39.7 L (40.1-51.0) % MCV 87.8 (79.0-92.2) fL MCH 30.8 (25.7-32.2) pg MCHC 35.0 (32.3-36.5) g/dL RDW 12.3 (11.6-14.4) % Plt Count 257 (163-337) x10^3/uL MPV 10.0 (9.4-12.4) fL Gran % (34.0-67.9) % Immature Gran % (Auto) (0.001-0.429) % Nucleat RBC Rel Count (0.00-0.2) % Eos # (Auto) (0.04-0.54) x10^3/uL Immature Gran # (Auto) (0.001-0.031) x10^3u/L Absolute Lymphs (auto) (1.32-3.57) x10^3/uL Absolute Monos (auto) (0.30-0.82) x10^3/uL Absolute Nucleated RBC (0.00-0.012) x10^3u/L Lymphocytes % (21.8-53.1) % Monocytes % (5.3-12.2) % Eosinophils % (0.8-7.0) % Basophils % (0.2-1.2) % Absolute Granulocytes (1.78-5.38) x10^3/uL Basophils # (0.01-0.08) x10^3/uL D-Dimer (0.0-0.50) mg/L Sodium 136 (135-145) mmol/L Potassium 3.6 (3.5-5.1) mmol/L Chloride 100 (98-107) mmol/L Carbon Dioxide 28 (22-30) mmol/L Anion Gap 11.8 (5-15) MEQ/L BUN 20 (9-20) mg/dL Creatinine 1.30 H (0.66-1.25) mg/dL Estimated GFR 80.7 ML/MIN Glucose 102 (74-106) mg/dL Calcium 9.4 D (8.4-10.2) mg/dL Magnesium (1.6-2.3) mg/dL Total Bilirubin 0.90 (0.2-1.3) mg/dL AST 46 (17-59) U/L ALT 35 (0-50) U/L Alkaline Phosphatase 77 (38-126) U/L Creatine Kinase (55-170) U/L Troponin I < 0.012 (0.000-0.033) ng/mL NT-Pro-B Natriuret Pep (<300) pg/mL Serum Total Protein 6.4 (6.3-8.2) g/dL Albumin 4.2 (3.5-5.0) g/dL Urine Color (Yellow) Urine Appearance (Clear) Urine pH (4.6-8.0) Ur Specific [place] (1.005-1.030) Urine Protein (Negative) Urine Glucose (UA) (Negative) mg/dL Urine Ketones (Negative) Urine Blood (Negative) Urine Nitrite (Negative) Urine Bilirubin (Negative) Urine Urobilinogen (0.2) mg/dL Ur Leukocyte Esterase (Negative) U Hyaline Cast (Auto) (0-2) /LPF Urine Microscopic RBC (0-5) /HPF Urine Microscopic WBC (0-5) /HPF Ur Epithelial Cells (None Seen) /HPF Urine Bacteria (None Seen) /HPF Urine Culture Reflexed (NO) Urine Opiates Level (NEGATIVE) Ur Methadone (NEGATIVE) Urine Barbiturates (NEGATIVE) Ur Phencyclidine (PCP) (NEGATIVE) Urine Amphetamine (NEGATIVE) U Benzodiazepine Level (NEGATIVE) Urine Cocaine (NEGATIVE) Urine Marijuana (THC) (NEGATIVE) Influenza Type A Ag (NEGATIVE) Influenza Type B Ag (NEGATIVE) RSV (PCR) (NEGATIVE) SARS-CoV-2 (PCR) (NEGATIVE) 03/15/24 Range/Units 03:13 WBC (4.23-9.07) x10^3/uL RBC (4.63-6.08) x10^6/uL Hgb (13.7-17.5) g/dL Hct (40.1-51.0) % MCV (79.0-92.2) fL MCH (25.7-32.2) pg MCHC (32.3-36.5) g/dL RDW (11.6-14.4) % Plt Count (163-337) x10^3/uL MPV (9.4-12.4) fL Gran % (34.0-67.9) % Immature Gran % (Auto) (0.001-0.429) % Nucleat RBC Rel Count (0.00-0.2) % Eos # (Auto) (0.04-0.54) x10^3/uL Immature Gran # (Auto) (0.001-0.031) x10^3u/L Absolute Lymphs (auto) (1.32-3.57) x10^3/uL Absolute Monos (auto) (0.30-0.82) x10^3/uL Absolute Nucleated RBC (0.00-0.012) x10^3u/L Lymphocytes % (21.8-53.1) % Monocytes % (5.3-12.2) % Eosinophils % (0.8-7.0) % Basophils % (0.2-1.2) % Absolute Granulocytes (1.78-5.38) x10^3/uL Basophils # (0.01-0.08) x10^3/uL D-Dimer (0.0-0.50) mg/L Sodium (135-145) mmol/L Potassium (3.5-5.1) mmol/L Chloride (98-107) mmol/L Carbon Dioxide (22-30) mmol/L Anion Gap (5-15) MEQ/L BUN (9-20) mg/dL Creatinine (0.66-1.25) mg/dL Estimated GFR ML/MIN Glucose (74-106) mg/dL Calcium (8.4-10.2) mg/dL Magnesium (1.6-2.3) mg/dL Total Bilirubin (0.2-1.3) mg/dL AST (17-59) U/L ALT (0-50) U/L Alkaline Phosphatase (38-126) U/L Creatine Kinase 1031 H (55-170) U/L Troponin I (0.000-0.033) ng/mL NT-Pro-B Natriuret Pep (<300) pg/mL Serum Total Protein (6.3-8.2) g/dL Albumin (3.5-5.0) g/dL Urine Color (Yellow) Urine Appearance (Clear) Urine pH (4.6-8.0) Ur Specific [place] (1.005-1.030) Urine Protein (Negative) Urine Glucose (UA) (Negative) mg/dL Urine Ketones (Negative) Urine Blood (Negative) Urine Nitrite (Negative) Urine Bilirubin (Negative) Urine Urobilinogen (0.2) mg/dL Ur Leukocyte Esterase (Negative) U Hyaline Cast (Auto) (0-2) /LPF Urine Microscopic RBC (0-5) /HPF Urine Microscopic WBC (0-5) /HPF Ur Epithelial Cells (None Seen) /HPF Urine Bacteria (None Seen) /HPF Urine Culture Reflexed (NO) Urine Opiates Level (NEGATIVE) Ur Methadone (NEGATIVE) Urine Barbiturates (NEGATIVE) Ur Phencyclidine (PCP) (NEGATIVE) Urine Amphetamine (NEGATIVE) U Benzodiazepine Level (NEGATIVE) Urine Cocaine (NEGATIVE) Urine Marijuana (THC) (NEGATIVE) Influenza Type A Ag (NEGATIVE) Influenza Type B Ag (NEGATIVE) RSV (PCR) (NEGATIVE) SARS-CoV-2 (PCR) (NEGATIVE) Radiology Exams: Radiology Procedures Category Date Time Status CHEST 1 VIEW (PORTABLE) Stat Exams 03/14/24 19:17 Completed Assessment/Plan (1) Rhabdomyolysis Current Visit: Yes Status: Acute Assessment & Plan: - Mild - CK 650 on admission - today CK 1031 - IVF - tele Code(s): M62.82 - RHABDOMYOLYSIS (2) Acute renal injury Current Visit: Yes Status: Acute Assessment & Plan: - Creat 2.65 on admission, today 1.30- improved - Cont IVF Code(s): N17.9 - ACUTE KIDNEY FAILURE, UNSPECIFIED (3) Dehydration Current Visit: Yes Status: Acute Assessment & Plan: - Anion gap normal today - continue IVF Code(s): E86.0 - DEHYDRATION (4) Metabolic acidosis Current Visit: Yes Status: Resolved Assessment & Plan: - resolved Code(s): E87.20 - ACIDOSIS, UNSPECIFIED (5) Muscle cramping Current Visit: Yes Status: Acute Assessment & Plan: - Continued today, mostly in calves - Continue robaxin and tylenol # 3 PRN D/C plan: tomorrow Next of KIN: Mother- in room with pt VTE: SCD's Code(s): R25.2 - CRAMP AND SPASM
[2024-03-16 04:25] LABS: Hematocrit 39.1 % (40.1-51.0); Hemoglobin 13.3 g/dL (13.7-17.5); Mean Cell Volume 90.9 fL (79.0-92.2); Mean Corpuscular Hemoglobin 30.9 pg (25.7-32.2); Mean Platelet Volume 10.1 fL (9.4-12.4); Platelet Count 224 x10^3/uL (163-337); Red Cell Distribution Width 12.5 % (11.6-14.4); White Blood Count 4.2 x10^3/uL (4.23-9.07)
[2024-03-16 04:42] LABS: ALBUMIN 3.6 g/dL (3.5-5.0); ANION GAP 7.7 MEQ/L (5-15); BILIRUBIN,TOTAL 0.3 mg/dL (0.2-1.3); Calcium 9.4 mg/dL (8.4-10.2); Creatinine 1 0.94 mg/dL (0.66-1.25); Potassium 4.4 mmol/L (3.5-5.1); Total Protein 5.9 g/dL (6.3-8.2)
--- NOTE | 2024-03-16 07:53 | PCM.DS ---
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 He did complain of some sweating and shortness of breath as well. No other GI urinary symptoms reported. No hematuria. In the ER his vital signs were stable. As far as lab workup was concerned it was significant for high white cell count BUN 18 creatinine 2.65 anion gap urine was negative for infection chest x-ray was clear CK was 675. Patient was admitted for volume depletion/mild rhabdo. Ck 1031 today, and he is c/o muscle pain. Will continue IVF, pain meds, and muscle relaxers and keep another night. Likely will d/c tomorrow if sxs and labs improved. Discussed the importance of staying hydrated when working out in the heat. He denies any further concerns at this time. 03/16/24 Pt resting in bed this morning. He said he feels better and less muscle aches today. CK is down and CELINA resolved. Discussed in detail to stay hydrated with electrolyte replacement drinks and water when working out in the heat. He will need to stay home form work and rest until Wednesday or Wednesday. He needs his labs rechecked before returning to work. Mother in room and discussed with her as well. He denies CP, SOB, abd. pain, N/V/D. - Vitals & Intake/Output Vital Signs: Vital Signs Temperature 97.2 F 03/16/24 04:00 Pulse Rate 72 03/16/24 04:00 Respiratory Rate 20 03/16/24 04:00 Blood Pressure 104/58 03/16/24 04:00 O2 Sat by Pulse Oximetry 97 03/16/24 04:00 Intake & Output: Intake & Output 03/13/24 03/14/24 03/15/24 03/16/24 11:59 11:59 11:59 11:59 Intake Total 1367 2520 Balance 1367 2520 Weight 101.4 kg - Lab Result Diagrams: 03/16/24 04:15 03/16/24 04:15 Lab Results-Last 24 Hrs: Lab Results-Last 24 Hours 03/15/24 03/16/24 03/16/24 Range/Units 03:13 04:15 04:15 WBC 4.2 L (4.23-9.07) x10^3/uL RBC 4.30 L (4.63-6.08) x10^6/uL Hgb 13.3 L (13.7-17.5) g/dL Hct 39.1 L (40.1-51.0) % MCV 90.9 (79.0-92.2) fL MCH 30.9 (25.7-32.2) pg MCHC 34.0 (32.3-36.5) g/dL RDW 12.5 (11.6-14.4) % Plt Count 224 (163-337) x10^3/uL MPV 10.1 (9.4-12.4) fL Sodium 140 (135-145) mmol/L Potassium 4.4 D (3.5-5.1) mmol/L Chloride 104 (98-107) mmol/L Carbon Dioxide 32 H (22-30) mmol/L Anion Gap 7.7 (5-15) MEQ/L BUN 17 (9-20) mg/dL Creatinine 0.94 (0.66-1.25) mg/dL Estimated GFR 119.0 ML/MIN Glucose 100 (74-106) mg/dL Calcium 9.4 (8.4-10.2) mg/dL Total Bilirubin 0.30 (0.2-1.3) mg/dL AST 48 (17-59) U/L ALT 33 (0-50) U/L Alkaline Phosphatase 67 (38-126) U/L Creatine Kinase 1031 H 850 H (55-170) U/L Serum Total Protein 5.9 L (6.3-8.2) g/dL Albumin 3.6 (3.5-5.0) g/dL - Radiology Exams Ordered Rad Exams-Entire Visit: Radiology Procedures Category Date Time Status CHEST 1 VIEW (PORTABLE) Stat Exams 03/14/24 19:17 Completed - Procedures and Test Procedures and Tests throughout Hospitalization: Therapy Orders & Screens 07/30/24 22:51 Smoking Cessation Education ONCE Comment: Diagnosis: Dehydration, acute renal injury, Smoking Status: Never smoker Have you smoked in the past 12 months: Yes Do you dip or chew tobacco: No Discharge Exam General Appearance: no apparent distress, alert Neurologic Exam: alert, oriented x 3, cooperative, normal mood/affect, nml cerebellar function, sensation nml, No motor deficits Eye Exam: PERRL, EOMI, eyes nml inspection Ears, Nose, Throat Exam: normal ENT inspection, pharynx normal, moist mucous membranes Neck Exam: normal inspection, non-tender, supple, full range of motion Respiratory Exam: normal breath sounds, lungs clear, No respiratory distress Cardiovascular Exam: regular rate/rhythm, normal heart sounds Gastrointestinal/Abdomen Exam: soft, No tenderness, No mass Male Genitalia Exam: deferred Rectal Exam: deferred Back Exam: normal inspection, normal range of motion, No CVA tenderness, No vertebral tenderness Extremity Exam: normal inspection, normal range of motion Skin Exam: normal color, warm, dry Final Diagnosis/Problem List - Final Discharge Diagnosis/Problem (1) Rhabdomyolysis Current Visit: Yes Status: Acute Code(s): M62.82 - RHABDOMYOLYSIS (2) Acute renal injury Current Visit: Yes Status: Acute Code(s): N17.9 - ACUTE KIDNEY FAILURE, UNSPECIFIED (3) Dehydration Current Visit: Yes Status: Acute Code(s): E86.0 - DEHYDRATION (4) Metabolic acidosis Current Visit: Yes Status: Resolved Code(s): E87.20 - ACIDOSIS, UNSPECIFIED (5) Muscle cramping Current Visit: Yes Status: Acute Assessment & Plan: (1) Rhabdomyolysis Current Visit: Yes Status: Acute Assessment & Plan: - Mild - CK 650 on admission - today CK 1031 - IVF - tele 03/16 - Ck 850- improved - muscle pain improved Code(s): M62.82 - RHABDOMYOLYSIS (2) Acute renal injury Current Visit: Yes Status: Acute Assessment & Plan: - Creat 2.65 on admission, today 1.30- improved - Cont IVF 03/16 - resolved Code(s): N17.9 - ACUTE KIDNEY FAILURE, UNSPECIFIED (3) Dehydration Current Visit: Yes Status: Acute Assessment & Plan: - Anion gap normal today - continue IVF Code(s): E86.0 - DEHYDRATION (4) Metabolic acidosis Current Visit: Yes Status: Resolved Assessment & Plan: - resolved Code(s): E87.20 - ACIDOSIS, UNSPECIFIED (5) Muscle cramping Current Visit: Yes Status: Acute Assessment & Plan: - Continued today, mostly in calves - Continue robaxin and tylenol # 3 PRN 03/16 - improved Code(s): R25.2 - CRAMP AND SPASM - Discharge Discharge Date: 03/16/24 Disposition: Home, Self-Care Condition: Stable Prescriptions: No Action No Reportable Medications [No Reported Medications] Follow up with: DOCTOR,NO FAMILY [Primary Care Provider] -
[2024-03-16 07:58] VITALS: BP 104/57; PULSE 70; RESP 18; TEMP 97; O2SAT 96
== END 2024-03-16 11:04 | disposition home or self-care (01) ==
LOC: ED 18:21 → MED SURG 21:50
PROVIDERS: ADMIT Internal Medicine; ATTEND Internal Medicine
DX: M62.82 Rhabdomyolysis (principal); N17.9 Acute kidney failure, unspecified; E86.0 Dehydration; E87.20 Acidosis, unspecified; D72.829 Elevated white blood cell count, unspecified
CPT/HCPCS: 0241U; 36000; 36415; 71045; 80053; 80307; 81001; 82550; 83735; 83880; 84484; 85025; 85027; 85379; 86140; 93005; 93041; 94760; 96360; 99285; G0378; Q3014; A9270-GY